=== PATIENT | male | born 1940 | race Caucasian/White ===

== ENCOUNTER 2016-11-06 16:28 | Emergency (ER) | payer MEDICARE ==
[2016-11-06] MEDS ORDERED: Ketorolac 60 MG/2 ML SDV IM ONE (16:39)
[2016-11-06] MEDS ORDERED: ceFAZolin 1 GM Vial IM ONE ×2 (17:08→17:43)
--- NOTE | 2016-11-06 17:12 | EDM.PDOC ---
ED HPI GENERAL MEDICAL PROBLEM - General Chief Complaint: Upper Extremity Injury/Pain Stated Complaint: FINGERTIP Time Seen by Provider: 11/06/16 16:38 Source of Information: Reports: Patient, Family, RN Notes Reviewed History Limitations: Reports: No Limitations - History of Present Illness INITIAL COMMENTS - FREE TEXT/NARRATIVE: 76-year-old gentleman presents emergency department today with a laceration to digit #5 is left hand he accidentally injured himself by catching it in a table saw he has no functional complaints bleeding is controlled - Related Data Allergies Allergy/AdvReac Type Severity Reaction Status Date / Time No Known Allergies Allergy Verified 11/06/16 16:40 Home Meds: Home Meds Aspirin [Adult Low Dose Aspirin EC] 81 mg PO DAILY 06/07/13 [History] HCTZ/Triamterene [Maxzide 25-37.5 MG] 0.5 tab PO DAILY 06/07/13 [History] Lutein 20 mg PO DAILY 06/07/13 [History] traZODone HCl [Trazodone HCl] 50 mg PO BEDTIME 06/07/13 [History] Past Medical History HEENT History: Reports: Cataract, Impaired Vision, Sinusitis Cardiovascular History: Reports: Arrhythmia, Hypertension, Pacemaker Respiratory History: Reports: Sleep Apnea Gastrointestinal History: Reports: Colon Polyp, GERD Musculoskeletal History: Reports: None - Infectious Disease History Infectious Disease History: Reports: Chicken Pox, Measles, Mumps - Past Surgical History HEENT Surgical History: Reports: Cataract Surgery, Eye Surgery Cardiovascular Surgical History: Reports: Pacer GI Surgical History: Reports: Colonoscopy, EGD, Hernia, Inguinal Male Surgical History: Reports: None Neurological Surgical History: Reports: None Musculoskeletal Surgical History: Reports: Arthroscopic Knee Social & Family History - Tobacco Use Smoking Status *Q: Never Smoker Second Hand Smoke Exposure: No - Caffeine Use Caffeine Use: Reports: Coffee - Alcohol Use Days Per Week of Alcohol Use: 0 - Recreational Drug Use Recreational Drug Use: No Review of Systems - Review of Systems Review Of Systems: See Below Constitutional: Reports: No Symptoms Skin: Reports: Wound Neurological: Reports: No Symptoms ED EXAM, GENERAL - Physical Exam Exam: See Below Free Text/Narrative:: Examination left hand radial pulses 2+ full range of motion of all digits sensation is intact he is missing the distal portion of digit #5 on left hand ED TRAUMA EXTREMITY PROCEDURES - Laceration/Wound Repair Left Finger Lac/Wound Length In cm: 3 Appearance: Irregular, Moderately Contaminated Distal NVT: Neuro & Vascular Intact, No Tendon Injury Anesthetic Type: Digital Local Anesthesia - Lidocaine (Xylocaine): 1% Plain Local Anesthetic Volume: 2cc Skin Prep: Other (Copious amounts of Water) Saline Irrigation (cc's): 3,000 Exploration/Debridement/Repair: Wound Explored, In a Bloodless Field, Explored to Base, No Foreign Material Found, Wound Margins Revised Closed With: Sutures Suture Size: 4-0 # of Sutures: 5 Suture Type: Nylon Sterile Dressing Applied: Provider Tetanus Status Addressed: Yes Complications: No Course - Orders/Labs/Meds Orders: Active Orders 24 hr Category Date Time Status Fingers Fifth Digit Lt F4 [CR] Stat Exams 11/06/16 16:38 Taken Meds: Medications Discontinued Medications Generic Name Dose Route Start Last Admin Trade Name Amanda PRN Reason Stop Dose Admin Cefazolin Sodium 1 gm 11/06/16 17:08 11/06/16 17:17 Ancef IM 11/06/16 17:09 1 gm ONETIME ONE Administration Ketorolac Tromethamine 60 mg 11/06/16 16:39 11/06/16 17:01 Toradol IM 11/06/16 16:40 60 mg ONETIME ONE Administration Lidocaine HCl 5 ml 11/06/16 17:07 11/06/16 17:17 Xylocaine-Mpf 1% INJECT 11/06/16 17:08 5 ml ONETIME ONE Administration Departure - Departure Time of Disposition: 17:39 Disposition: Home, Self-Care 01 Condition: Good Clinical Impression: Fracture of distal phalanx of finger of left hand Avulsion, finger tip Qualifiers: Encounter type: initial encounter Qualified Code(s): S61.209A - Unspecified open wound of unspecified finger without damage to nail, initial encounter - Discharge Information Referrals: Kvng Stallings MD [Primary Care Provider] - Forms: ED Department Discharge Additional Instructions: Take full course of antibiotics, use hydrocodone as needed for pain control, please call for appointment with orthopedics on Wednesday morning - My Orders Last 24 Hours: My Active Orders 11/06/16 16:38 Fingers Fifth Digit Lt F4 [CR] Stat - Assessment/Plan Last 24 Hours: My Active Orders 11/06/16 16:38 Fingers Fifth Digit Lt F4 [CR] Stat Plan: Assessment Acuity = acute Site and laterality = distal phalange he fracture with avulsion digit #5 left hand Etiology = secondary to table saw injury Manifestations = pain Location of injury = Home Lab values = x-ray describes fracture listed above Plan I did review films with him he received 1 g Ancef IM placed on Keflex 500 mg by mouth 3 times a day 7 days, total #20 hydrocodone 5/325 one tab by mouth every 6 hours when necessary. He is to follow-up with orthopedics on Wednesday of this week tetanus within the last 6 months Patient was in agreement with the plan all questions were answered, they were instructed to return to the emergency department or call for worsening symptoms. This note was dictated using [employer] voice recognition software please call with any questions.
[2016-11-06 17:57] VITALS: BP 140/76
--- NOTE | 2016-11-09 09:12 | CR ---
Partial amputation fifth distal phalanx. A few bone fragments are evident within the surrounding soft tissues.
== END 2016-11-06 17:52 | disposition home or self-care (01) ==
LOC: JP.ED 16:28
DX: S62.637A Displaced fracture of distal phalanx of left little finger, initial encounter for closed fracture (principal); S61.307A Unspecified open wound of left little finger with damage to nail, initial encounter; I10 Essential (primary) hypertension; K21.9 Gastro-esophageal reflux disease without esophagitis; Z79.82 Long term (current) use of aspirin; Z79.899 Other long term (current) drug therapy; Z95.0 Presence of cardiac pacemaker; Z98.49 Cataract extraction status, unspecified eye; W31.2XXA Contact with powered woodworking and forming machines, initial encounter
CPT/HCPCS: 12002; 73140; 96372; 99283; 99284; J0690; J1885

== ENCOUNTER 2017-07-13 06:27 | Day surgery (SDC) | payer MEDICARE ==
[2017-07-13] MEDS ORDERED: Lactated Ringers 1,000 ML IV SCH (07:00)
[2017-07-13] MEDS ORDERED: Bupivacaine 0.25%/EPINEPHrine 1:200,000 30 ML SDV ONE (07:10)
[2017-07-13] MEDS ORDERED: methylPREDNISolone Acetate 80 MG/ML SDV ONE (07:10)
[2017-07-13] MEDS ORDERED: Ondansetron 4 MG/2 ML SDV ONE (07:14)
[2017-07-13] MEDS ORDERED: Succinylcholine 200 MG/10 ML MDV ONE (07:14)
[2017-07-13] MEDS ORDERED: fentaNYL 250 MCG/5 ML SDV ONE (07:14)
[2017-07-13] MEDS ORDERED: Rocuronium 50 MG/5 ML Vial ONE (07:14)
[2017-07-13] MEDS ORDERED: Dexamethasone 4 MG/ML SDV ONE (07:14)
[2017-07-13] MEDS ORDERED: Propofol 200 MG/20 ML SDV ONE (07:14)
[2017-07-13] MEDS ORDERED: Midazolam 1 MG/ML 2 ML SDV ONE (07:14)
[2017-07-13] MEDS ORDERED: ceFAZolin 2 GM in Premix Bag 1 BAG IV ONE (07:30)
[2017-07-13] MEDS ORDERED: ePHEDrine 50 MG/ML SDV ONE (07:54)
[2017-07-13] MEDS ORDERED: Ketorolac 60 MG/2 ML SDV IM ONE (09:41)
[2017-07-13 10:23] VITALS: BP 138/58
--- NOTE | 2017-07-13 15:12 | OR ---
DATE OF PROCEDURE: 07/13/2017 PREOPERATIVE DIAGNOSES: 1. Significant radial tear, posterior horn, medial meniscus, left knee. 2. Osteoarthritis, grade 2, patellofemoral joint, medial compartment, and lateral plateau. 3. 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 POSTOPERATIVE DIAGNOSES: 1. Significant radial tear, posterior horn, medial meniscus, left knee. 2. Osteoarthritis, grade 2, patellofemoral joint medial compartment and lateral plateau. 3. 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 PROCEDURE PERFORMED: Scope of left knee; shaving mid posterior horn, medial meniscus, shaved to stable chondral base, lateral femoral condyle. BLOOD LOSS: Minimum. COMPLICATION: None. INDICATIONS: Aung is a healthy 77-year-old who I have been following for the last year. He had moderate arthritic changes of his knee. We had treated this with a few injections. He did well with this. The pain always came back. He had a CT scan done because he could not have an MRI, and it shows a medial meniscal tear. This is where his symptoms were more aggressive for him, and we decided to proceed with a knee scope. I discussed with the patient possible risks, benefits, alternatives, and complications of surgery. The nature of the procedure was explained. All questions were answered. I had informed consent. DESCRIPTION OF PROCEDURE: The patient was brought to the OR. I did my markings on the left knee. He did receive antibiotics preop. The [employer] proceeded with general anesthesia. The patient was put on his back. A tourniquet was applied to the left proximal quadriceps. Sterile prep and dressing done in the usual manner of the left knee. Time-out was taken to identify the correct surgical site, to make sure all instrumentation were present in the room. The leg was elevated, tourniquet was raised to 250 mmHg. The knee was bent 90 degrees. An anterior lateral portal incision was done with the scalpel. A blunt probe was entered in the articulation followed by irrigation and camera. Visualizing the medial lateral gutters did not show any loose bodies. The patellofemoral joint, maybe some grade 1, at the most grade 2. For his age, this was well. The medial compartment shows probably some grade 2, slight areas of grade 3 of the weightbearing surface. Medial plateau shows grade 1, grade 2 at the most. He had significant radial tear at the junction of the middle posterior horn of the medial meniscus, certainly could cause him his symptoms. The ACL was normal. The lateral compartment grade 1, grade 2 lateral plateau, but mostly the lateral condyle significant fraying and fissuring. The weightbearing surface that I would qualify grade 3-grade 4. An incision was done at the anterior medial portal after a blunt probe was entered. I shaved the mid posterior horn of the medial meniscus and shaved to a stable chondral base, lateral femoral condyle. The whole knee was washed with saline, dried, all instrumentation removed. The skin was closed with nylon 3-0 simple sutures. An injection of 8 mL of Marcaine, 80 mg of Depo-Medrol was done, and sterile dressing was applied. Tourniquet was released. Blood loss was minimal. There was no complication. The patient tolerated well the operation. He was sent to the recovery room in good condition. Josef Braun MD /[id number]
== END 2017-07-13 10:26 | disposition home or self-care (01) ==
LOC: JP.SDS 06:27
PROVIDERS: ATTEND Orthopaedic Surgery
DX: S83.204A Other tear of unspecified meniscus, current injury, left knee, initial encounter (principal); M17.12 Unilateral primary osteoarthritis, left knee; I10 Essential (primary) hypertension; K21.9 Gastro-esophageal reflux disease without esophagitis; I87.2 Venous insufficiency (chronic) (peripheral); G47.33 Obstructive sleep apnea (adult) (pediatric); N52.9 Male erectile dysfunction, unspecified; Z79.899 Other long term (current) drug therapy; Z95.0 Presence of cardiac pacemaker; Z79.82 Long term (current) use of aspirin; Z99.89 Dependence on other enabling machines and devices
CPT/HCPCS: 29877; J0330; J0690; J1040; J1100; J1885; J2250; J2405; J2704; J3010; J7120

== ENCOUNTER 2017-11-28 16:52 | Emergency (ER) | payer MEDICARE ==
--- NOTE | 2017-11-28 18:41 | EDM.PDOC ---
ED HPI GENERAL MEDICAL PROBLEM - General Chief Complaint: Respiratory Problem Stated Complaint: HEART ISSUES SOB Time Seen by Provider: 11/28/17 17:30 Source of Information: Reports: Patient, Family (Pills) History Limitations: Reports: No Limitations - History of Present Illness INITIAL COMMENTS - FREE TEXT/NARRATIVE: 77-year-old male who recently underwent cardiac surgery, a valve repair and two- vessel bypass surgery who has a cardiology consultation and follow-up tomorrow as well as a pacemaker check who is concerned that over the past 24 hours he feels more short of breath and fatigued. No fever or chills, no nausea or vomiting. He has very little activity tolerance. He just wants to make sure everything is okay. Onset: Gradual Duration: Day(s): (Worse over the past 2 days) Severity: Moderate Associated Symptoms: Reports: Cough (Especially when lying down), Shortness of Breath, Weakness. Denies: Fever/Chills, Headaches - Related Data Allergies Allergy/AdvReac Type Severity Reaction Status Date / Time No Known Allergies Allergy Verified 10/22/17 08:43 Home Meds: Home Meds Aspirin [Adult Low Dose Aspirin EC] 81 mg PO DAILY 06/07/13 [History] Fluticasone Propionate [Flonase Allergy Relief] 2 sprays NASBOTH DAILY 07/09/17 [History] Losartan Potassium [Cozaar] 50 mg PO DAILY 07/09/17 [History] Ranitidine HCl [Ranitidine] 150 mg PO BID 07/09/17 [History] Sildenafil Citrate [Sildenafil] 100 mg PO ASDIRECTED 07/09/17 [History] Magnesium Oxide 200 mg PO DAILY 10/18/17 [History] Carvedilol 6.25 mg PO BID 11/28/17 [History] Furosemide 40 mg PO DAILY 11/28/17 [History] LORazepam 0.5 mg PO BEDTIME 11/28/17 [History] Potassium Chloride [Klor-Con] 40 meq PO DAILY 11/28/17 [History] Sennosides [Senna] 17.2 mg PO DAILY 11/28/17 [History] Tamsulosin HCl 0.4 mg PO DAILY 11/28/17 [History] atorvaSTATin Calcium [Atorvastatin Calcium] 10 mg PO DAILY 11/28/17 [History] oxyCODONE HCl/Acetaminophen [Oxycodone-Acetaminophen 5-325] 1 tab PO Q4H PRN [History] Past Medical History HEENT History: Reports: Cataract, Impaired Vision, Sinusitis Cardiovascular History: Reports: Arrhythmia, Hypertension, Pacemaker Respiratory History: Reports: Sleep Apnea, Other (See Below) Other Respiratory History: cannot sleep laying down Gastrointestinal History: Reports: Colon Polyp, GERD Musculoskeletal History: Reports: Other (See Below) Other Musculoskeletal History: 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 GI Surgical History: Reports: Colonoscopy, EGD, Hernia, Inguinal Male Surgical History: Reports: None Neurological Surgical History: Reports: None Musculoskeletal Surgical History: Reports: Arthroscopic Knee Social & Family History - Family History Family Medical History: Noncontributory - Tobacco Use Smoking Status *Q: Never Smoker Second Hand Smoke Exposure: No - Caffeine Use Caffeine Use: Reports: Coffee - Recreational Drug Use Recreational Drug Use: No ED ROS GENERAL - Review of Systems Review Of Systems: See Below Constitutional: Reports: Malaise, Decreased Appetite. Denies: Fever, Chills HEENT: Denies: Throat Pain Respiratory: Reports: Shortness of Breath, Cough Cardiovascular: Denies: Chest Pain Endocrine: Reports: Fatigue GI/Abdominal: Denies: Nausea, Vomiting Skin: Reports: Pallor Neurological: Reports: Dizziness, Weakness. Denies: Headache Psychiatric: Reports: No Symptoms ED EXAM, GENERAL - Physical Exam Exam: See Below Exam Limited By: No Limitations General Appearance: Alert, No Apparent Distress Eye Exam: Bilateral Eye: EOMI Throat/Mouth: Normal Inspection (Good hydration) Head: Atraumatic Respiratory/Chest: No Respiratory Distress, Other (Somewhat decreased breath sounds in the bases but no rales or rhonchi) Cardiovascular: Regular Rate, Rhythm GI/Abdominal: Non-Tender Extremities: Pedal Edema (2+ pitting edema in both lower extremities) Neurological: Alert, Oriented Psychiatric: Normal Affect, Normal Mood Skin Exam: Warm, Dry Course - Vital Signs Last Recorded V/S: Last Vital Signs Temp 97.7 F 11/28/17 17:21 Pulse 84 11/28/17 18:56 Resp 19 09/30/18 18:56 BP 117/69 11/28/17 18:56 Pulse Ox 98 11/28/17 18:56 - Orders/Labs/Meds Orders: Active Orders 24 hr Category Date Time Status Chest 2V [CR] Routine Exams 11/28/17 17:50 Taken Labs: Laboratory Tests 11/28/17 11/28/17 Range/Units 18:04 18:04 WBC 8.5 (4.5-11.0) K/uL RBC 3.09 L (4.30-5.90) M/uL Hgb 9.4 L (12.0-15.0) g/dL Hct 28.8 L (40.0-54.0) % MCV 93 (80-98) fL MCH 30 (27-31) pg MCHC 33 (32-36) % Plt Count 354 (150-400) K/uL Neut % (Auto) 74 H (36-66) % Lymph % (Auto) 11 L (24-44) % Dickson % (Auto) 12 H (2-6) % Eos % (Auto) 3 (2-4) % Baso % (Auto) 0 (0-1) % Sodium 134 L (140-148) mmol/L Potassium 4.4 (3.6-5.2) mmol/L Chloride 97 L (100-108) mmol/L Carbon Dioxide 29 (21-32) mmol/L Anion Gap 12.4 (5.0-14.0) mmol/L BUN 25 H (7-18) mg/dL Creatinine 1.2 (0.8-1.3) mg/dL Est Cr Clr Drug Dosing 59.19 mL/min Estimated GFR (MDRD) 59 L (>60) Glucose 99 (74-106) mg/dL Calcium 8.8 (8.5-10.1) mg/dL Total Bilirubin 0.4 (0.2-1.0) mg/dL AST 13 L (15-37) U/L ALT 18 (12-78) U/L Alkaline Phosphatase 44 L (46-116) U/L Total Protein 6.4 (6.4-8.2) g/dL Albumin 3.0 L (3.4-5.0) g/dL Globulin 3.4 (2.3-3.5) g/dL Albumin/Globulin Ratio 0.9 L (1.2-2.2) - Re-Assessments/Exams Free Text/Narrative Re-Assessment/Exam: 11/28/17 18:40 Patient was placed on cardiac monitoring and is in a persistent bigeminy, however O2 saturations and blood pressure normal. Two-view chest x-ray was obtained that showed no significant effusion or congestive heart failure. CBC revealed a hemoglobin of 9.4, I do not know what his baseline is but white count is normal. 11/28/17 18:47 Remainder the patient's chemistry profile was unremarkable. The chest x-ray was sent to [facility] electronically, and copies of the labs were made for with the patient to take with him to his appointment tomorrow. Departure - Departure Time of Disposition: 19:06 Disposition: Home, Self-Care 01 Condition: Fair Clinical Impression: Increasing shortness of breath Anemia Qualifiers: Anemia type: other cause - Discharge Information Instructions: Shortness of Breath, Adult, [id number] Referrals: PCP,None [Primary Care Provider] - Forms: ED Department Discharge Care Plan Goals: Continue your current medications, and recheck tomorrow as scheduled. Return sooner if worsening or you develop other concerns. - My Orders Last 24 Hours: My Active Orders 11/28/17 17:50 Chest 2V [CR] Routine - Assessment/Plan Last 24 Hours: My Active Orders 11/28/17 17:50 Chest 2V [CR] Routine
[2017-11-28 18:56] VITALS: BP 117/69
--- NOTE | 2017-11-29 09:33 | CR ---
CHEST: 2 view CLINICAL HISTORY:Dyspnea COMPARISON:2007 FINDINGS: Patient has had previous sternotomy. There is a permanent cardiac pacer. 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 Lungs are hyperaerated. There is patchy density in the right lower lo be.. There is some blunting of the left costophrenic angle. Impression: Emphysematous changes Patchy right lower lobe density suggests pneumonic infiltrate Small left pleural effusion new since prior study Short-term follow-up recommended
== END 2017-11-28 19:05 | disposition home or self-care (01) ==
LOC: JP.ED 16:52
DX: R06.02 Shortness of breath (principal); D64.9 Anemia, unspecified; I10 Essential (primary) hypertension; Z79.899 Other long term (current) drug therapy; Z79.82 Long term (current) use of aspirin
CPT/HCPCS: 36415; 71046; 71046-26; 80053; 85025; 99283; 99285

== ENCOUNTER 2022-12-27 11:00 | Emergency (ER) | payer MEDICARE | END 2022-12-27 11:05 | disposition left against medical advice (07) | LOC: JP.ED 11:00 | DX: Z53.21 Procedure and treatment not carried out due to patient leaving prior to being seen by health care provider (principal) ==